=== PATIENT | female | born 1975 | race Caucasian/White ===

== ENCOUNTER 2024-01-22 19:31 | Inpatient (IN) ==
--- NOTE | 2024-01-22 19:42 | ED Triage Note ---
Date of Service January 22, 2024 Provider in Triage Author: Denzel Banuelos History of Present Illness This patient was briefly evaluated while in triage. An abbreviated physical exam was performed. This patient is a 48-year-old Female who presents to the ED for evaluation of abnormal outpatient labs. Had flu last month, and now with vaginal bleeding for about 4 or 5 weeks. Still with persistent fatigue. Out patient blood work with low blood counts, and was sent to ER for evaluation. Physical Exam Limited Triage Exam: VITALS: Vitals are noted on the nurse's note and reviewed by myself. Vital signs stable. GENERAL: Well-developed, well-nourished, white female, who is in no acute distress and resting comfortably. Patient is cooperative with the examination. HEART: Regular rate and rhythm without murmurs gallops or rubs. LUNGS: Clear to auscultation bilaterally without wheezes, rales or rhonchi. No retractions or accessory muscle use. NEURO: Patient was alert and oriented to person place and time. CN II through XII grossly intact. Initial orders for labs and / or imaging were placed and patient was placed in the waiting area until a bed is available. Please see further documentation for the full ED course. MDM / Impression Impression Impression: Symptomatic anemia, Influenza A, Hypokalemia, DUB (dysfunctional uterine bleeding)
[2024-01-22 20:31] LABS: Appearance Urine Clear (Clear); Bacteria Urine Automated Negative (Negative); Bilirubin Urine Negative (Negative); Blood Urine 2+ (Negative); Color Urine Yellow; Glucose Urine UA Negative (Negative); Ketones Urine Negative (Negative); Leukocyte Esterase Urine Negative (Negative); Nitrite Urine Negative (Negative); Protein Urine Negative (Negative); RBC Urine Automated >30 /hpf (0-4); Specific Gravity Urine 1.017 (1.000-1.030); Urobilinogen Urine Negative (Negative); WBC Urine Automated 0 /hpf (0-5); pH Urine 5.5 (4.5-7.5)
[2024-01-22 20:33] LABS: Basophils # (auto) 0.02 K/uL (0.00-0.20); Basophils % (auto) 0.6 %; Eosinophils # (auto) 0.06 K/uL (0.00-0.50); Eosinophils % (auto) 1.8 %; Hematocrit (blood only) 28.6 % (37.0-47.0); Hemoglobin 9.6 g/dl (12.0-16.0); Immature Granulocytes # (auto) 0.01 K/uL (0.01-0.20); Immature Granulocytes % (auto) 0.3 %; Mean Corpuscular Hgb Conc 33.6 g/dL (32.0-36.0); Mean Corpuscular Volume 86.4 fL (80.0-100.0); Mean Platelet Volume 9.8 fL (9.4-12.4); Monocytes % (auto) 12.3 %; Neutrophils # (auto) 1.27 K/uL (1.40-6.50); Platelet Count 262 K/uL (130-400); RDW Coefficient of Variation 14.5 % (11.5-14.5); RDW Standard Deviation 44.7 fL (36.4-46.3); Red Blood Count 3.31 M/uL (4.20-5.40); White Blood Count 3.26 K/ul (4.8-10.8)
[2024-01-22 20:45] LABS: Albumin Globulin Ratio 1.4 (0.9-2); Albumin Level 4.2 gm/dl (3.4-5.0); BUN Creatinine Ratio 18.1 (10-20); Bilirubin,Total 0.3 mg/dl (0.2-1.0); Calcium 9.3 mg/dl (8.6-10.3); Creatinine Clr Calc Pharmacy 79.6 ml/min; Est GFR (African American) 96.6 ml/min; Est GFR (Non-African American) 83.4 ml/min; Globulin 3.1 gm/dl (2.5-4.0); Magnesium 1.8 mg/dl (1.7-2.4); Potassium 2.7 mmol/L (3.5-5.1); Total Protein 7.3 gm/dl (6.0-8.3)
[2024-01-22 20:51] LABS: Pregnancy Test, Serum Negative (Negative)
[2024-01-22 20:52] LABS: Troponin I High Sensitivity 12.9 pg/ml (0-14)
[2024-01-22 20:59] LABS: Partial Thromboplastin Time 28 Seconds (21-31); Prothrombin Time 10.6 Seconds (9.0-12.0)
[2024-01-22 21:01] LABS: Thyroid Stimulating Hormone 3.436 uIu/ml (0.300-4.500)
[2024-01-22] MEDS: POTASSIUM CHLORIDE / WTR 10 MEQ/100 ML PLCT IV SCH (22:20)
[2024-01-22] MEDS: POTASSIUM CHLORIDE CRTAB 20 MEQ TABCR PO STA (22:20)
[2024-01-22 22:41] LABS: Adenovirus PCR Not Detected (NotDetected); Bordetella parapertussis PCR Not Detected (NotDetected); Bordetella pertussis PCR Not Detected (NotDetected); Chlamydia pneumoniae PCR Not Detected (NotDetected); Coronavirus 229E PCR Not Detected (NotDetected); Coronavirus CoV-2 (COVID19)PCR Not Detected (NotDetected); Coronavirus HKU1 PCR Not Detected (NotDetected); Coronavirus NL63 PCR Not Detected (NotDetected); Coronavirus OC43PCR Not Detected (NotDetected); Human Metapneumovirus PCR Not Detected (NotDetected); Influenza A (H3) PCR DETECTED (NotDetected); Influenza B PCR Not Detected (NotDetected); Mycoplasma pneumoniae PCR Not Detected (NotDetected); Parainfluenza Virus 1 PCR Not Detected (NotDetected); Parainfluenza Virus 2 PCR Not Detected (NotDetected); Parainfluenza Virus 3 PCR Not Detected (NotDetected); Parainfluenza Virus 4 PCR Not Detected (NotDetected); Respiratory Syncytial VirusPCR Not Detected (NotDetected); Rhinovirus/Enterovirus PCR Not Detected (NotDetected)
--- NOTE | 2024-01-22 23:00 | History & Physical Report ---
Date of Service January 22, 2024 Assessment & Plan (1) Abnormal uterine bleeding: Plan: Pt is a 48 yo female with PMH of afib s/p ablation on current eliquis therapy and HTN presenting to the ER by recommendation of her PCP d/t low WBC. Influenza - still minimally symptomatic after 1-2 mths of symptoms; main symptom now occasional dry cough - VS stable; afebrile; exam unrevealing; CXR w/o opacities or consolidations - do not suspect any bacterial infection/PNA at this time; will defer antibiotic tx - supportive care; tessalon perles PRN, throat lozenge PRN AUB - per pt, has been perimenopausal with irregular periods for the last 3 yrs; however, usually periods were light - current episode of vaginal bleeding began 12/21; she has to change a pad q1- 2hrs - pelvic US showed endometrial stripe 9 mm; although stripe thickness is not reliable in terms of dysplasia risk in premenopausal women- no other obvious abnormalities to explain her menorrhagia - Hgb upon admission 9.6 (12.4 last year); pt possible symptomatic- occasionally dizzy, fatigue, etc; however, this may be in part d/t influenza as above - trend Hgb to ensure stability - 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 Rey Hx of cardiomyopathy/afib - pt follows with [facility] cardiology - per pt, she had an ablation done last year and has been on eliquis since d/t afib - her most recent stress echo was performed 10/2023- no results available in chart - echo ordered for AM to ensure no acute worsening of heart's functional status leading to pt's current symptoms of dizziness/fatigue - hold eliquis d/t bleeding as above - would recommend further discussion with cardiology concerning whether or not pt needs correction anticoagulation, especially in the setting of acute bleeding Hypokalemia - K 2.7 in ED; repleted with 40 meq PO and 10 meq IV - recheck in AM - hold home HCTZ HTN - pt with hx of labile BP; underwent secondary HTN work up with endocrinology fall 2022 which appears to have not been completed - d/t electrolyte abnormalities, would recommended d/c HCTZ upon discharge - per record review and pt hx, she was previously on losartan and coreg which were switched by endocrinology in order to evaluate further for primary aldosteronism - pt states her BP have been relatively stable since switching to verapamil and HCTZ Dispo: admit to med/tele Diet: heart healthy Code: full VTE ppx: hold eliquis in setting of current bleeding with acute blood loss anemia; encourage ambulation (2) Influenza: (3) Paroxysmal A-fib: (4) Perimenopause: (5) Hypertension: (6) Hypokalemia: History of Present Illness Chief Complaint: general illness, vaginal bleeding- sent by PCP d/t low WBC Primary Care Provider: Dayo Flower DO Pt is a 48 yo female with PMH of afib s/p ablation on current eliquis therapy and HTN presenting to the ER by recommendation of her PCP d/t low WBC. Pt states she has been sick for about a month or two now. Her son had the flu originally and her and her became sick as well- this knocked them out for about 2 weeks. Since then, she has been intermittently sick with cough, fatigue, dizziness, and achiness. She called her PCP for further evaluation and they ordered blood work and she was prescribed amoxicillin. An on-call doctor called her and told her to report to the ER d/t low WBC count that should be worked up further. In addition to this, pt notes she started vaginally bleeding Dec 21. She has been bleeding every day since (except for maybe 3 days). Her flow has been normal to heavy; she has been changing her pad every 1-2 hrs. She relays she has been perimenopausal for ~3 years. Her last period prior to this bleeding was in Jul 2023. Pt does note she did have a heavy 3 week long period a few years ago i n which a pelvic US was performed (this revealed no abnormalities). In the ER, pt was given potassium and magnesium supplementation. Allergies Allergy/AdvReac Type Severity Reaction Status Date / Time dextromethorphan Allergy Intermediate FACIAL Verified 01/22/24 22:16 [From Vicks NyQuil Cold/Flu ITCHY HIVES Liquicap] doxylamine Allergy Intermediate FACIAL Verified 01/22/24 22:16 [From Vicks NyQuil Cold/Flu ITCHY HIVES Liquicap] mineral oil [From Anusol] Allergy Intermediate MADE Verified 01/22/24 22:16 HEMORRHOIDS WORSE NSAIDS (Non-Steroidal Allergy Unknown CONTRAINDICATED Verified 01/22/24 22:16 Anti-Inflamma D/T HEART ISSUES balsam surjit [From Anusol] AdvReac Intermediate MADE Verified 01/22/24 22:16 HEMORRHOIDS WORSE bismuth subgallate AdvReac Intermediate MADE Verified 01/22/24 22:16 [From Anusol] HEMORRHOIDS WORSE pramoxine [From Anusol] AdvReac Intermediate MADE Verified 01/22/24 22:16 HEMORRHOIDS WORSE resorcinol [From Anusol] AdvReac Intermediate MADE Verified 01/22/24 22:16 HEMORRHOIDS WORSE starch [From Anusol] AdvReac Intermediate MADE Verified 01/22/24 22:16 HEMORRHOIDS WORSE zinc oxide [From Anusol] AdvReac Intermediate MADE Verified 01/22/24 22:16 HEMORRHOIDS WORSE Home Medications Medication Instructions Recorded Confirmed Type apixaban 5 mg tablet (Eliquis) 5 mg PO BID 11/24/22 01/22/24 History multivitamin 1 tab PO DAILY 02/20/23 01/22/24 History atorvastatin 20 mg tablet (Lipitor) 20 mg PO DAILY #90 tabs 10/14/23 01/22/24 Rx hydrochlorothiazide 25 mg tablet 25 mg PO DAILY #90 tabs 12/07/23 01/22/24 Rx benzonatate 200 mg capsule 200 mg PO TID PRN cough #30 caps 12/23/23 01/22/24 Rx amoxicillin 500 mg tablet 500 mg PO TID 10 days #30 tabs 01/22/24 01/22/24 Rx ascorbic acid (vitamin C) 500 mg 0 mg PO DAILY PRN COLD AND FLU 01/22/24 01/22/24 History tablet (Vitamin C) SEASON polyethylene glycol 3350 17 gram 17 g PO DIRECTED 01/22/24 01/22/24 History oral powder packet (Miralax) verapamil 40 mg tablet 80 mg PO TID 01/22/24 01/22/24 History Past Med/Surg History Medical History Urinary urgency Family History Mother Hypertension CHF (congestive heart failure) Atrial fibrillation Stroke Sister Thyroid disease Social History Smoking Status: Never smoker Age Quit Using Tobacco: 21; Second Hand Exposure: No; Hx Alcohol Use: Yes Alcohol type: hard liquor Alcohol Intake Frequency: Monthly or Less Hx Substance Use: Yes Last Used Substance: Unknown Last Used Substance Other:: every few months Preferred Language: Faroese Communication Ability: Effective Claim Administrator Required: No Beliefs That Will Affect Care: None marital status: Current Living Situation: Family How many Children do You have: 2 Feels Safe at Home: Yes Childhood Exposure to Second-Hand Smoke: Yes caffeine: Yes Dental Care, Regularly: Yes Physical Activity Frequency: Does not Exercise Seatbelt Use: always Sunscreen Use: Yes Review of Systems Review of Systems: As per HPI Physical Exam Constitutional: NAD, vitals WNL. Eyes: PERRLA. Conjunctivae normal. Respiratory: CTA bilaterally. Non labored breathing. No rhonchi, wheezing, or crackles. Cardiovascular: RRR. No murmurs noted. No LE edema. Skin: No rashes or skin lesions noted. Neurologic: Sensation grossly intact. No FND appreciated. Psychiatric: Speech of normal pace and content. Mood and affect congruent. Results & Data Results & Data Vital Signs (Past 12 Hours) Vital Signs Temp Pulse Pulse Resp BP BP Pulse Ox 01/22/24 22:33 64 01/22/24 21:32 70 16 144/77 H 98 01/22/24 19:39 36.5 C 83 18 145/85 H 98 O2 Del Method 01/22/24 22:33 01/22/24 21:32 Room Air 01/22/24 19:39 Room Air Supervising Physician Co-Signing Physician Notes Attending addendum: I have physically seen this patient, have supervised the medical residents activities, and agree with the H&P unless as otherwise noted. Assessment and Plan: Abnormal uterine bleeding on chronic anticoagulation/blood loss anemia- Significant vaginal bleeding since 12/21/2023 Thickened endometrial stripe to 9 mm on pelvic ultrasound Hemoglobin 9.6 on admission, with base 12.4 No indication for transfusion Need to discuss with cardiology if still has need for anticoagulation Has a pending outpatient appointment with gynecology Cardiomyopathy/atrial fibrillation status post ablation/hypertension- The patient will be admitted to telemetry for serial cardiac enzymes, serial EKG's, cardiac rhythm monitoring and a 2-D echocardiogram with Dopplers. Holding BabyBus due to abnormal uterine bleeding Follows with [facility] Continue verapamil, HCTZ Influenza A H3- Symptoms from 1 to 2 months No direct treatment at this time Supportive care with throat lozenges, Tessalon Perles and Mucinex Resident Activity Tracking Resident Involvement: Resident Care Provided Care Provided: Adult Hospital Medicine
--- NOTE | 2024-01-22 23:10 | Ultrasound Report ---
Exam(s): US PELVIS EXAM: US Pelvis Transabdominal, Complete CLINICAL HISTORY: Reason for exam: heavy vaginal bleeding. TECHNIQUE: Real-time complete transabdominal pelvic ultrasound with image documentation. COMPARISON: No relevant prior studies available. FINDINGS: Uterus/cervix: 9.4 x 5.2 x 5.6 cm. Heterogeneous uterus without a focal fibroid. Normal endometrial stripe thickness at approximately 9 mm. Small amount of fluid within the endometrial canal. Small cervical nabothian cysts. Right ovary: Not well visualized. Probable right ovary 3.1 x 1.3 x 2 cm. Non-shadowing 6 x 5 x 6 mm echogenic focus within the suspected right ovary, possibly a fat-containing lesion. Normal blood flow. Left ovary: 2 x 1.6 x 1.9 cm. No mass. Normal blood flow. Adnexa: No free fluid or adnexal mass. IMPRESSION: Slightly heterogeneous uterus without a focal fibroid. Minimal fluid in the endometrial canal. Small cervical nabothian cyst. Echogenic nonshadowing subcentimeter focus in the probable right ovary, possibly a dermoid or related structure. Otherwise negative examination. Electronically signed by: Castro Gonzalez M.D. 01/22/24 23:09 PM
--- NOTE | 2024-01-22 23:27 | Emergency Department Note ---
History of Present Illness General Chief complaint: Abnormal Labs/Diagnostic Testing Stated complaint: WHITE CELL COUNT, VAG BLEED 1 MONTH, ABNORMAL LABS Time Seen by Provider: 01/22/24 21:30 History of Present Illness This 48-year-old female on Eliquis for history of A-fib who had an ablation last year presents the ER for increasing weakness, heavy vaginal bleeding for the past month, subjective fever and chills and abnormal blood count outpatient by the PCP today. Patient states PCP placed her on amoxicillin for possible infection. She has been sick with cold symptoms for the past few days and also last month also. She has a history of hypertrophic cardiomyopathy and follows with [facility] specialist. She cannot recall the name. Patient denies chest pain, headache, neck stiffness, vomiting, diarrhea. She states she is easily winded nowadays. She has not missed any of her DOAC medications. No leg pain or swelling. Home Medications Medication Instructions Recorded Confirmed Type apixaban 5 mg tablet (Eliquis) 5 mg PO BID 11/24/22 01/22/24 History multivitamin 1 tab PO DAILY 02/20/23 01/22/24 History atorvastatin 20 mg tablet (Lipitor) 20 mg PO DAILY #90 tabs 10/14/23 01/22/24 Rx hydrochlorothiazide 25 mg tablet 25 mg PO DAILY #90 tabs 12/07/23 01/22/24 Rx benzonatate 200 mg capsule 200 mg PO TID PRN cough #30 caps 12/23/23 01/22/24 Rx amoxicillin 500 mg tablet 500 mg PO TID 10 days #30 tabs 01/22/24 01/22/24 Rx ascorbic acid (vitamin C) 500 mg 0 mg PO DAILY PRN COLD AND FLU 01/22/24 01/22/24 History tablet (Vitamin C) SEASON polyethylene glycol 3350 17 gram 17 g PO DIRECTED 01/22/24 01/22/24 History oral powder packet (Miralax) verapamil 40 mg tablet 80 mg PO TID 01/22/24 01/22/24 History Allergies Allergy/AdvReac Type Severity Reaction Status Date / Time dextromethorphan Allergy Intermediate FACIAL Verified 01/22/24 22:16 [From [facility] NyQuil Cold/Flu ITCHY HIVES Liquicap] doxylamine Allergy Intermediate FACIAL Verified 01/22/24 22:16 [From [facility] NyQuil Cold/Flu ITCHY HIVES Liquicap] mineral oil [From Anusol] Allergy Intermediate MADE Verified 01/22/24 22:16 HEMORRHOIDS WORSE NSAIDS (Non-Steroidal Allergy Unknown CONTRAINDICATED Verified 01/22/24 22:16 Anti-Inflamma D/T HEART ISSUES balsam surjit [From Anusol] AdvReac Intermediate MADE Verified 01/22/24 22:16 HEMORRHOIDS WORSE bismuth subgallate AdvReac Intermediate MADE Verified 01/22/24 22:16 [From Anusol] HEMORRHOIDS WORSE pramoxine [From Anusol] AdvReac Intermediate MADE Verified 01/22/24 22:16 HEMORRHOIDS WORSE resorcinol [From Anusol] AdvReac Intermediate MADE Verified 01/22/24 22:16 HEMORRHOIDS WORSE starch [From Anusol] AdvReac Intermediate MADE Verified 01/22/24 22:16 HEMORRHOIDS WORSE zinc oxide [From Anusol] AdvReac Intermediate MADE Verified 01/22/24 22:16 HEMORRHOIDS WORSE Past Med/Surg History Medical History Urinary urgency Family History Mother Hypertension CHF (congestive heart failure) Atrial fibrillation Stroke Sister Thyroid disease Social History Smoking Status: Never smoker Age Quit Using Tobacco: 21; Second Hand Exposure: No; Hx Alcohol Use: Yes Alcohol Intake Frequency: Monthly or Less Hx Substance Use: No Preferred Language: Georgian marital status: Current Living Situation: Spouse and Family How many Children do You have: 2 Feels Safe at Home: Yes Childhood Exposure to Second-Hand Smoke: Yes caffeine: Yes Dental Care, Regularly: Yes Physical Activity Frequency: Does not Exercise Seatbelt Use: always Sunscreen Use: Yes Review of Systems A total of 10 systems reviewed and were otherwise negative Physical Exam Vital Signs Vital Signs - 24 hr 01/22/24 19:39 01/22/24 21:32 01/22/24 22:33 Temperature 36.5 C Temperature Source Temporal Artery Scan Pulse Rate 83 64 Pulse Rate [Right Finger] 70 Respiratory Rate 18 16 Respiratory Effort / Characteristics Non-Labored Spontaneous Non-Labored Spontaneous Respiratory Depth Normal Normal Respiratory Pattern Regular Regular Blood Pressure 145/85 H Blood Pressure [Right Arm] 144/77 H Blood Pressure Mean 105 Blood Pressure Mean [Right Arm] 99 Blood Pressure Position [Right Arm] Sitting Pulse Oximetry 98 98 Oxygen Delivery Method Room Air Room Air Sepsis Recent Fever Within 48 Hours No Sepsis New/Unexplained Change in Mental Status No Sepsis Action Taken by Nursing No Action Required VITALS: Vitals are noted on the nurse's note and reviewed by myself. Vital signs stable. GENERAL: Pleasant patient, in no acute distress, nondiaphoretic, well-developed well-nourished. SKIN: Capillary reflex less than 2 seconds. HEENT: Normocephalic. PERRLA. EOMI. Nares patent. Mucous membranes moist. Neck is supple without nuchal rigidity. HEART: Regular rate and rhythm LUNGS: Clear to auscultation bilaterally without wheezes, rales or rhonchi. No retractions or accessory muscle use. ABDOMEN: Positive bowel sounds x 4. Normal tympanic percussion. Soft, nontender, without masses or organomegaly. Casas sign negative. No guarding or rebound tenderness. no CVA tenderness MUSCULOSKELETAL: No gross musculoskeletal defects. NEURO: Patient was alert and oriented to person place and time. No focal neurological deficits. Course Administered Medications Potassium Chloride (K Nic / Wtr) 10 meq in 100 mls @ 100 mls/hr IV Q1H [facility] Stop: 01/22/24 23:59 Last Admin: 01/22/24 23:24 Dose: 100 mls/hr Documented By: Infusion: 01/22/24 23:20 Dose: Infused Documented By: Admin: 01/22/24 22:20 Dose: 100 mls/hr Documented By: ROBERTO Discontinued Medications Potassium Chloride (Potassium Chloride Crtab 20 Meq Tabcr) 40 meq PO NOW STA Stop: 01/22/24 21:51 Last Admin: 01/22/24 22:20 Dose: 40 meq Documented By: ROBERTO Medical Decision Making Medical Records Attestation: I reviewed the patient's medical records. Home Medications Current Medication List: was personally reviewed by me Laboratory Data Attestation: I reviewed the patient's lab results. 01/22/24 20:07 01/22/24 20:07 Lab Results 01/22/24 01/22/24 01/22/24 Range/Units 20:05 20:07 20:14 WBC 3.26 L (4.8-10.8) K/ul RBC 3.31 L (4.20-5.40) M/uL Hgb 9.6 L (12.0-16.0) g/dl Hct 28.6 L (37.0-47.0) % MCV 86.4 (80.0-100.0) fL MCH 29.0 (25.0-34.0) pg MCHC 33.6 (32.0-36.0) g/dL RDW Std Deviation 44.7 (36.4-46.3) fL RDW Coeff of Polo 14.5 (11.5-14.5) % Plt Count 262 (130-400) K/uL MPV 9.8 (9.4-12.4) fL Immature Gran % (Auto) 0.3 % Neut % (Auto) 39.0 % Lymph % (Auto) 46.0 % Cass % (Auto) 12.3 % Eos % (Auto) 1.8 % Baso % (Auto) 0.6 % Neut # (Auto) 1.27 L (1.40-6.50) K/uL Lymph # (Auto) 1.50 (1.20-3.40) K/uL Cass # (Auto) 0.40 (0.11-0.59) K/uL Eos # (Auto) 0.06 (0.00-0.50) K/uL Baso # (Auto) 0.02 (0.00-0.20) K/uL Immature Gran # (Auto) 0.01 (0.01-0.20) K/uL PT 10.6 (9.0-12.0) Seconds INR 1.0 (0.9-1.1) APTT 28 (21-31) Seconds PTT Ratio 1.0 Sodium 137 (136-145) mmol/L Potassium 2.7 L (3.5-5.1) mmol/L Chloride 98 (98-107) mmol/L Carbon Dioxide 30 (21-32) mmol/L Anion Gap 9 (3-11) BUN 15 (6-23) mg/dl Creatinine 0.83 (0.6-1.2) mg/dl Est Cr Clr Drug Dosing 79.6 ml/min Est GFR ( Amer) 96.6 ml/min Est GFR (Non-Af Amer) 83.4 ml/min BUN/Creatinine Ratio 18.1 (10-20) Glucose 102 H (70-99(Fasting)) mg/dl Calcium 9.3 (8.6-10.3) mg/dl Magnesium 1.8 (1.7-2.4) mg/dl Total Bilirubin 0.3 (0.2-1.0) mg/dl AST 34 (13-39) U/L ALT 36 (7-52) U/L Alkaline Phosphatase 103 (34-104) U/L Troponin I High Sens 12.9 (0-14) pg/ml Total Protein 7.3 (6.0-8.3) gm/dl Albumin 4.2 (3.4-5.0) gm/dl Globulin 3.1 (2.5-4.0) gm/dl Albumin/Globulin Ratio 1.4 (0.9-2) TSH 3.436 (0.300-4.500) uIu/ml HCG, Qual Negative (Negative) Urine Color Yellow Urine Appearance Clear (Clear) Urine pH 5.5 (4.5-7.5) Ur Specific Navarro 1.017 (1.000-1.030) Urine Protein Negative (Negative) Urine Glucose (UA) Negative (Negative) Urine Ketones Negative (Negative) Urine Blood 2+ H (Negative) Urine Nitrite Negative (Negative) Urine Bilirubin Negative (Negative) Urine Urobilinogen Negative (Negative) Ur Leukocyte Esterase Negative (Negative) Urine WBC (Auto) 0 (0-5) /hpf Urine RBC (Auto) >30 H (0-4) /hpf U Hyaline Cast (Auto) 1-5 (0-5) /lpf U Epithel Cells (Auto) 5-10 H (0-5) /lpf Urine Bacteria (Auto) Negative (Negative) Adenovirus (PCR) (NotDetected) B. pertussis DNA (PCR) (NotDetected) B.parapertussis DNA PCR (NotDetected) C. pneumoniae DNA (PCR) (NotDetected) Coronavirus OC43 (PCR) (NotDetected) Coronavirus HKU1 (PCR) (NotDetected) Coronavirus 229E (PCR) (NotDetected) SARS-CoV-2 (PCR) (NotDetected) Coronavirus NL63 (PCR) (NotDetected) Monoscreen Negative (Negative) Human Metapneumovir PCR (NotDetected) Influenza A (H3) PCR (NotDetected) Influenza Type B (PCR) (NotDetected) M. pneumoniae (PCR) (NotDetected) Parainfluenza 1 (PCR) (NotDetected) Parainfluenza 2 (PCR) (NotDetected) Parainfluenza 3 (PCR) (NotDetected) Parainfluenza 4 (PCR) (NotDetected) RSV (PCR) (NotDetected) Entero/Rhino (PCR) (NotDetected) Group A Strep (PCR) (NotDetected) Blood Type B Positive Antibody Screen NEGATIVE 01/22/24 01/22/24 Range/Units 21:30 22:45 WBC (4.8-10.8) K/ul RBC (4.20-5.40) M/uL Hgb (12.0-16.0) g/dl Hct (37.0-47.0) % MCV (80.0-100.0) fL MCH (25.0-34.0) pg MCHC (32.0-36.0) g/dL RDW Std Deviation (36.4-46.3) fL RDW Coeff of Polo (11.5-14.5) % Plt Count (130-400) K/uL MPV (9.4-12.4) fL Immature Gran % (Auto) % Neut % (Auto) % Lymph % (Auto) % Cass % (Auto) % Eos % (Auto) % Baso % (Auto) % Neut # (Auto) (1.40-6.50) K/uL Lymph # (Auto) (1.20-3.40) K/uL Cass # (Auto) (0.11-0.59) K/uL Eos # (Auto) (0.00-0.50) K/uL Baso # (Auto) (0.00-0.20) K/uL Immature Gran # (Auto) (0.01-0.20) K/uL PT (9.0-12.0) Seconds INR (0.9-1.1) APTT (21-31) Seconds PTT Ratio Sodium (136-145) mmol/L Potassium (3.5-5.1) mmol/L Chloride (98-107) mmol/L Carbon Dioxide (21-32) mmol/L Anion Gap (3-11) BUN (6-23) mg/dl Creatinine (0.6-1.2) mg/dl Est Cr Clr Drug Dosing ml/min Est GFR ( Amer) ml/min Est GFR (Non-Af Amer) ml/min BUN/Creatinine Ratio (10-20) Glucose (70-99(Fasting)) mg/dl Calcium (8.6-10.3) mg/dl Magnesium (1.7-2.4) mg/dl Total Bilirubin (0.2-1.0) mg/dl AST (13-39) U/L ALT (7-52) U/L Alkaline Phosphatase (34-104) U/L Troponin I High Sens (0-14) pg/ml Total Protein (6.0-8.3) gm/dl Albumin (3.4-5.0) gm/dl Globulin (2.5-4.0) gm/dl Albumin/Globulin Ratio (0.9-2) TSH (0.300-4.500) uIu/ml HCG, Qual (Negative) Urine Color Urine Appearance (Clear) Urine pH (4.5-7.5) Ur Specific Navarro (1.000-1.030) Urine Protein (Negative) Urine Glucose (UA) (Negative) Urine Ketones (Negative) Urine Blood (Negative) Urine Nitrite (Negative) Urine Bilirubin (Negative) Urine Urobilinogen (Negative) Ur Leukocyte Esterase (Negative) Urine WBC (Auto) (0-5) /hpf Urine RBC (Auto) (0-4) /hpf U Hyaline Cast (Auto) (0-5) /lpf U Epithel Cells (Auto) (0-5) /lpf Urine Bacteria (Auto) (Negative) Adenovirus (PCR) Not Detected (NotDetected) B. pertussis DNA (PCR) Not Detected (NotDetected) B.parapertussis DNA PCR Not Detected (NotDetected) C. pneumoniae DNA (PCR) Not Detected (NotDetected) Coronavirus OC43 (PCR) Not Detected (NotDetected) Coronavirus HKU1 (PCR) Not Detected (NotDetected) Coronavirus 229E (PCR) Not Detected (NotDetected) SARS-CoV-2 (PCR) Not Detected (NotDetected) Coronavirus NL63 (PCR) Not Detected (NotDetected) Monoscreen (Negative) Human Metapneumovir PCR Not Detected (NotDetected) Influenza A (H3) PCR DETECTED A (NotDetected) Influenza Type B (PCR) Not Detected (NotDetected) M. pneumoniae (PCR) Not Detected (NotDetected) Parainfluenza 1 (PCR) Not Detected (NotDetected) Parainfluenza 2 (PCR) Not Detected (NotDetected) Parainfluenza 3 (PCR) Not Detected (NotDetected) Parainfluenza 4 (PCR) Not Detected (NotDetected) RSV (PCR) Not Detected (NotDetected) Entero/Rhino (PCR) Not Detected (NotDetected) Group A Strep (PCR) NOT DETECTED (NotDetected) Blood Type Antibody Screen Imaging Data Attestation: I personally reviewed and interpreted this imaging study as follows: Radiologist's Impression: Pelvis Ultrasound 01/22/24 19:42 Exam(s): US PELVIS EXAM: US Pelvis Transabdominal, Complete CLINICAL HISTORY: Reason for exam: heavy vaginal bleeding. TECHNIQUE: Real-time complete transabdominal pelvic ultrasound with image documentation. COMPARISON: No relevant prior studies available. FINDINGS: Uterus/cervix: 9.4 x 5.2 x 5.6 cm. Heterogeneous uterus without a focal fibroid. Normal endometrial stripe thickness at approximately 9 mm. Small amount of fluid within the endometrial canal. Small cervical nabothian cysts. Right ovary: Not well visualized. Probable right ovary 3.1 x 1.3 x 2 cm. Non-shadowing 6 x 5 x 6 mm echogenic focus within the suspected right ovary, possibly a fat-containing lesion. Normal blood flow. Left ovary: 2 x 1.6 x 1.9 cm. No mass. Normal blood flow. Adnexa: No free fluid or adnexal mass. IMPRESSION: Slightly heterogeneous uterus without a focal fibroid. Minimal fluid in the endometrial canal. Small cervical nabothian cyst. Echogenic nonshadowing subcentimeter focus in the probable right ovary, possibly a dermoid or related structure. Otherwise negative examination. Electronically signed by: Castro Gonzalez M.D. 01/22/24 23:09 PM MDM Narrative 30 prior records/ancillary studies reviewed and summarized above. Nursing notes reviewed. Additional history obtained from family. The patient's history was concerning for heavy vaginal bleeding on a DOAC, weakness, cold symptoms. Differential diagnosis: Etiologies such as metabolic, infection, hypo/hyperglycemia, electrolyte abnormalities, cardiac sources, intracerebral event, toxicologic, neurologic, as well as others were entertained. Physical examination: As above. ER treatment provided: IV Lock An order was placed for continuous cardiac monitoring. The monitor shows a rate of 60-100 with a sinus rhythm per my interpretation. IV fluids, potassium, magnesium were ordered On reassessment the patient felt better. Diagnostics interpretation by me: ECG: Ordered for weakness EKG: Normal sinus, right bundle, left anterior fascicular block, rate of 71. Impression normal sinus rhythm with right bundle branch block unchanged independent abdomen myself The labs Independently Interpreted by myself revealed new anemia, positive flu A, low potassium. Imaging studies: Chest x-ray with no acute consolidation, pneumothorax or free air per my independent interpretation Ultrasound as above Consultation: A consultation was placed with the hospitalist. The case was discussed and diagnostics were reviewed. The patient was evaluated in the ER for further treatment. Exam and history seem consistent with symptomatic anemia who is also flu a positive with low potassium. Patient is also on a DOAC. She has had increasing heavy bleeding for the past few weeks steadily getting worse. She is also been quite short of breath and fatigued. She was medicated as above. Patient is agreeable treatment plan of medicine. Medicine was consulted and will evaluate the patient for admission. The patient's family care doctor was messaged on secure text to inform them of the test results as they sent the patient in. By the evaluation outlined above emergent etiologies such as cardiac sources, intracerebral event, toxologic, neurologic, abnormalities blood glucose, metabolic, as well as others were deemed relatively unlikely. The pt informed about the findings as listed above. All questions were answered and pleased with the treatment. The chart was completed utilizing [email or web address] voice recognition software. Grammatical errors, random word insertions, pronoun errors, and incomplete sentences are an occassional consequence of this system due to software limitations, ambient noise, and hardware issues. Any formal questions or concerns about the content, text, or information contained within the body of this dictation should be directly addressed to the physician assistant director of plant operations for clarification. Impression & Plan Symptomatic anemia, Influenza A, Hypokalemia, DUB (dysfunctional uterine bleeding) Discharge Plan Visit Data Chief Complaint: Abnormal Labs/Diagnostic Testing Stated Complaint: WHITE CELL COUNT, VAG BLEED 1 MONTH, ABNORMAL LABS ED Provider: Jaskaran Hardin ED Midlevel Provider: Mary Jo Stallings Discharge Problem: Symptomatic anemia, Influenza A, Hypokalemia, DUB (dysfunctional uterine bleeding) Patient Disposition: Admitted As Inpatient Condition: Good Forms Stand Alone Forms: [facility] Prescriptions Prescriptions: No Action atorvastatin [Lipitor] 20 mg tablet 20 mg PO DAILY Qty: 90 2RF hydrochlorothiazide 25 mg tablet 25 mg PO DAILY Qty: 90 2RF amoxicillin 500 mg tablet 500 mg PO TID 10 Days Qty: 30 0RF Rx Instructions: STARTED 01/22/24 FOR 10 DAYS Eliquis 5 mg tablet 5 mg PO BID multivitamin Tablet 1 tab PO DAILY benzonatate 200 mg capsule 200 mg PO TID PRN (Reason: cough) Qty: 30 0RF polyethylene glycol 3350 [Miralax] 17 gram Powder In Packet 17 g PO DIRECTED Rx Instructions: TAKES DAILY OR EVERY OTHER DAY ascorbic acid (vitamin C) [Vitamin C] 500 mg Tablet 0 mg PO DAILY PRN (Reason: COLD AND FLU SEASON) Rx Instructions: PT UNSURE OF STRENGTH verapamil 40 mg tablet 80 mg PO TID Referrals Referrals: Dayo Flower DO [Primary Care Provider] -
[2024-01-22] MEDS: MAGNESIUM SULFATE / D5W 1 GM/100 ML BAG IV STA (23:36)
[2024-01-23] MEDS ORDERED: COUGH DROP (SUGAR FREE) LOZ 24 LOZ/1 BOX BUCCAL PRN (01:26)
[2024-01-23] MEDS ORDERED: BENZONATATE 100 MG CAPSULE PO PRN (01:26)
[2024-01-23] MEDS ORDERED: ONDANSETRON INJ 2 MG/ML 2 ML VIAL IV PRN (01:26)
[2024-01-23] MEDS ORDERED: POLYETHYLENE (MIRALAX) 17 GM PACK PO PRN (01:26)
[2024-01-23] MEDS ORDERED: ACETAMINOPHEN 325 MG TAB PO PRN (01:26)
[2024-01-23 03:06] LABS: Basophils # (auto) 0.01 K/uL (0.00-0.20); Basophils % (auto) 0.4 %; Eosinophils # (auto) 0.03 K/uL (0.00-0.50); Eosinophils % (auto) 1.1 %; Hemoglobin 8.3 g/dl (12.0-16.0); Immature Granulocytes # (auto) 0.01 K/uL (0.01-0.20); Immature Granulocytes % (auto) 0.4 %; Lymphocytes % (auto) 49.1 %; Mean Corpuscular Hemoglobin 29.3 pg (25.0-34.0); Mean Corpuscular Hgb Conc 34.6 g/dL (32.0-36.0); Mean Corpuscular Volume 84.8 fL (80.0-100.0); Mean Platelet Volume 9.8 fL (9.4-12.4); Monocytes # (auto) 0.26 K/uL (0.11-0.59); Monocytes % (auto) 9.8 %; Neutrophils # (auto) 1.04 K/uL (1.40-6.50); Neutrophils % (auto) 39.2 %; Platelet Count 207 K/uL (130-400); RDW Coefficient of Variation 14.5 % (11.5-14.5); RDW Standard Deviation 44.6 fL (36.4-46.3); Red Blood Count 2.83 M/uL (4.20-5.40); White Blood Count 2.65 K/ul (4.8-10.8)
[2024-01-23 03:18] LABS: BUN Creatinine Ratio 22.1 (10-20); Calcium 8.5 mg/dl (8.6-10.3); Creatinine Clr Calc Pharmacy 97.2 ml/min; Est GFR (African American) 119.9 ml/min; Est GFR (Non-African American) 103.4 ml/min; Magnesium 2.1 mg/dl (1.7-2.4)
--- NOTE | 2024-01-23 07:23 | XRay Report ---
XR chest 1V portable HISTORY: cough/fatigue COMPARISON: None. FINDINGS: The lungs are clear. Cardiac silhouette is normal in size. No pleural effusions. No pneumot horax. IMPRESSION: No acute process. ACT 112: Negative or not required by law. Electronically signed by: Jude Vidal M.D. 01/23/2024 7:22 AM
--- NOTE | 2024-01-23 07:48 | Hospitalist Progress Note ---
Date of Service January 23, 2024 Assessment & Plan (1) Abnormal uterine bleeding: Plan: Pt is a 48 yo female with PMH of afib s/p ablation on current eliquis therapy and HTN presenting to the ER by recommendation of her PCP d/t low WBC. Leukopenia -Patient with WBC 2.43 and neutrophil 0.81 on outpatient lab 01/21. -Influenza a month ago with persistence for 2 weeks then worsening recently and testing positive for Influenza A on biofire. -Hgb low but in the face of AUB likely cannot say if this is related to the leukopenia. Platelets remain in a normal range. -Medications with rare side effect of leukopenia include amoxicillin and HCTZ however very unlikely these are cause. -More likely viral marrow suppression due to influenza A or another virus not detected by biofire. -Will continue to trend, if continues to trend well then likely benign and patient can follow up outpatient. Influenza: -Still somewhat symptomatic with main symptom dry cough. -Patient has remained hemodynamically stable, physical exam reassuring, CXR normal. -May have had re-activation of influenza vs post-viral bacterial infection of pharynx or sinuses. -Continue supportive care for now, tessalon perles PRN, throat lozenge PRN. AUB/Anemia -per pt, has been perimenopausal with irregular periods for the last 3 yrs; however, usually periods were light (change pads q3-4 hours) -current episode of vaginal bleeding began 12/21 with slight break from Sun to Thursday; she has to change a heavy pads q1-2hrs -pelvic US showed endometrial stripe 9 mm; although stripe thickness is not reliable in terms of dysplasia risk in premenopausal women- no other obvious abnormalities to explain her menorrhagia -Hgb upon admission 9.6 (12.4 last year); pt possible symptomatic- occasionally dizzy, fatigue, etc; however, this may be in part d/t influenza as above -Iron low normal at 35, transferrin low normal 206, transferrin sat low 12%, TIBC normal, B12 normal. -Patient has done well to keep iron stores in normal range given amount of blood loss over past month. -Will trend hemoglobin to ensure stability. -Started norethindrone 5mg QID in the hopes of stopping the bleeding, told patient may take one to three days. -Will continue to monitor until bleeding stops. -Pt does have an outpatient biometrician appt for this upcoming January [address] Rey Hx of cardiomyopathy/afib -Pt follows with [facility] cardiology -Per pt, she had an ablation done last year and has been on eliquis since d/t afib -her most recent stress echo was performed 10/2023- no results available in chart - echo ordered this AM to ensure no acute worsening of heart's functional status leading to pt's current symptoms of dizziness/fatigue -hold eliquis d/t bleeding as above Hypokalemia -K 2.7 in ED; repleted with 40 meq PO and 10 meq IV -AM BMP -hold home HCTZ HTN -Pt with hx of labile BP; underwent secondary HTN work up with endocrinology fall 2022 which appears to have not been completed -d/t electrolyte abnormalities, would recommended d/c HCTZ upon discharge -per record review and pt hx, she was previously on losartan and coreg which were switched by endocrinology in order to evaluate further for primary aldosteronism -pt states her BP have been relatively stable since switching to verapamil and HCTZ Dispo: admit to med/tele Diet: heart healthy Code: full VTE ppx: hold eliquis in setting of current bleeding with acute blood loss anemia; encourage ambulation (2) Influenza: (3) Paroxysmal A-fib: (4) Perimenopause: (5) Hypertension: (6) Hypokalemia: Admission and Anticipated Discharge Date Admission Date: January 22, 2024 Supervising Physician Co-Signing Physician Notes I personally examined the patient and verified all cannon points of history and exam, discussed case, and agree with decision making with Dr Pearce Feeling better breathing. Looks weak. Notes that she was feeling better from the flu, slowly getting better, and then her grandson was sick with something seeming virus from daycare, few days later she had low-grade temps and worse cough. Her temp on Thursday was about 99, nothing elevated since. No chest pain or shortness of breathmore of a cough feeling like it is coming from her throat, no significant face pain/pressure/sinus congestion. Vaginal bleeding persists. Vitals noted, in general she is awake and alert pleasant no distress. HEENT normocephalic atraumatic mucous membranes moist. Breathing unlabored no accessory muscle use good effort. Skin shows no rashes no pallor or icterus. Neuro without focal deficits. Subacute blood loss anemia/ vaginal bleedinggiven reassuring pelvic ultrasound as far as endometrial findings, this seems most likely to be perimenopausal irregular dysfunctional uterine bleeding compounded by Eliquis for A-fib. Given that the bleeding persistswill treat with progesterone. If that does not affect improvement in bleeding, inpatient gynecology consult, if it does, she is set up to see gynecology as an outpatient in a little over a week. Fortunately her iron stores are on the low end of normal, so suspect that she will be able to hematopoiese her way out of anemia as long as the bleeding stops. Upper respiratory symptomsher history is quite compelling for having had the flu, followed by another, discretely different, viral illness this past week. Nothing fitting with bacterial overgrowth or a bacterial infectionno clear role for antibiotics. She agrees. Ongoing vigilance and supportive care. Leukopenianothing appears to be overall ominouswhile she "does have 2 cell lines down"the anemia seems to be much more directly related to her vaginal bleeding, and her platelets being normal is reassuring. Also she does not really show any other concerning signs or symptoms. I suspect it is a viral mediated marrow suppression leukopenia. We discussed this. If so, would anticipate this to improve over time, if it does not normalize over the next 2 weeks or so, or if new symptoms develop, then would definitely want to workup further. Atrial fibrillationEliquis currently on hold due to vaginal bleeding. Discussed risk/benefit of this, and the small possible increased risk of venous thromboembolic events on progesterone, which is likely independent of her atrial fibrillation overall. At the same time, discussed that basically as soon as her vaginal bleeding has stopped we will be resuming her Eliquis otherwise as above Subjective Per patient she is feeling better today than yesterday. She also adds for her cold symptoms that she lives with her 4 year old grandson and that he had gone to a new daycare this past month and gotten sick prior her to getting the symptoms she came in with. As original HPI stated she has had irregular bleeding pattern with latest bleeding from late November until Thursday and then picked up again Thursday. When she has this bleeding it usually requires changing heavy pads or nightly pads every 1-2 hours. When she had regular periods, prior to her julio-menopausal irregularity, she had bleeding that would only necessitate every 3-4 hours for changing pads and period would last for 4 or 5 days. She does not have prior history of anemia necessitating iron treatment however had some anemia in . She had tried iron supplement before however and had const ipation from it. She is still having the heavy bleeding even into this admission. Review of Systems Review of Systems: As per HPI Physical Exam Constitutional: WD/WN, vitals as above Eyes: PERRL, conjunctivae normal, anicteric sclerae Respiratory: normal respiratory effort, lungs clear to auscultation Cardiovascular: RRR, no murmur, no edema Gastrointestinal (Abdomen): normal bowel sounds, soft, nontender, no hepatosplenomegaly Psychiatric: A+Ox3, euthymic affect Results & Data Results & Data Vital Signs (Past 12 Hours) Vital Signs Pulse Pulse Pulse Resp BP Pulse Ox O2 Del Method 01/23/24 07:01 55 L 01/23/24 06:16 65 20 121/87 97 Room Air 01/23/24 04:04 60 15 102/66 97 Room Air 01/23/24 01:48 64 19 120/75 97 Room Air 01/23/24 01:00 64 15 113/63 97 Room Air 01/22/24 23:00 87 17 138/89 99 Room Air 01/22/24 22:33 64 01/22/24 21:32 70 16 144/77 H 98 Room Air Resident Activity Tracking Resident Involvement: Resident Care Provided Care Provided: Adult Hospital Medicine
[2024-01-23] MEDS: VERAPAMIL HCL 40 MG TAB PO SCH (07:51)
[2024-01-23] MEDS: ATORVASTATIN 20 MG TAB PO SCH (07:51)
[2024-01-23 10:23] LABS: Ferritin 68.5 ng/ml (8-388)
[2024-01-23] MEDS: POTASSIUM CHLORIDE CRTAB 20 MEQ TABCR PO STA (12:24)
--- NOTE | 2024-01-23 14:40 | Billing Data ---
Date of Service January 23, 2024 Coding Level of Care Code 81357 SUB INP/OBS CARE MIN
--- NOTE | 2024-01-23 16:25 | XCELERA ---
[id number] \\[email or web address]\[id number]\[id number]
[2024-01-23] MEDS: NORETHINDRONE 5 MG TAB PO SCH (17:20)
--- NOTE | 2024-01-23 19:32 | Billing Data ---
Date of Service January 23, 2024 Coding Level of Care Code 30964 INT INP/OBS CARE
[2024-01-24 06:43] LABS: Calcium 8.3 mg/dl (8.6-10.3); Hematocrit (blood only) 25.6 % (37.0-47.0); Hemoglobin 8.6 g/dl (12.0-16.0); Mean Corpuscular Hemoglobin 29.1 pg (25.0-34.0); Mean Corpuscular Hgb Conc 33.6 g/dL (32.0-36.0); Mean Corpuscular Volume 86.5 fL (80.0-100.0); Mean Platelet Volume 10.1 fL (9.4-12.4); Platelet Count 210 K/uL (130-400); Potassium 3.3 mmol/L (3.5-5.1); RDW Coefficient of Variation 14.8 % (11.5-14.5); RDW Standard Deviation 46.2 fL (36.4-46.3); Red Blood Count 2.96 M/uL (4.20-5.40); White Blood Count 3.38 K/ul (4.8-10.8)
[2024-01-24 06:49] LABS: BUN Creatinine Ratio 15.2 (10-20); Creatinine Clr Calc Pharmacy 100.2 ml/min; Est GFR (African American) 121.1 ml/min; Est GFR (Non-African American) 104.5 ml/min
--- NOTE | 2024-01-24 07:16 | Hospitalist Progress Note ---
Date of Service January 24, 2024 Assessment & Plan (1) Abnormal uterine bleeding: Plan: Pt is a 48 yo female with PMH of afib s/p ablation on current eliquis therapy and HTN presenting to the ER by recommendation of her PCP d/t low WBC. AUB/Anemia -per pt, has been perimenopausal with irregular periods for the last 3 yrs; however, usually periods were light (change pads q3-4 hours) -current episode of vaginal bleeding began 12/21 with slight break from Thu to Thursday; she has to change a heavy pads q1-2hrs -pelvic US without evidence for overt cause of bleeding. -Hgb upon admission 9.6 (12.4 last year); pt possible symptomatic- occasionally dizzy, fatigue, etc; however, this may be in part d/t influenza. -Iron low normal at 35, transferrin low normal 206, transferrin sat low 12%, TIBC normal, B12 normal. -Patient has done well to keep iron stores in normal range given amount of blood loss over past month. -Will trend hemoglobin to ensure stability. -Started norethindrone 5mg QID in the hopes of stopping the bleeding, told patient may take one to three days. -Will continue to monitor until bleeding stops. -Pt does have an outpatient machine room operator appt for this upcoming January [address] Rey Leukopenia Resolving -Patient with WBC 2.43 and neutrophil 0.81 on outpatient lab 01/21. -Influenza a month ago with persistence for 2 weeks then worsening recently and testing positive for Influenza A on biofire. -Hgb low but in the face of AUB likely cannot say if this is related to the leukopenia. Platelets remain in a normal range. -Medications with rare side effect of leukopenia include amoxicillin and HCTZ however very unlikely these are cause. -More likely viral marrow suppression due to influenza A or another virus not detected by biofire. -Trending upward, neutrophils in normal range now. -Will continue to trend, if continues to trend well then likely benign and patient can follow up outpatient with repeat CBC in 2 weeks. Influenza: -Still somewhat symptomatic with main symptom dry cough. -Patient has remained hemodynamically stable, physical exam reassuring, CXR normal. -May have had re-activation of influenza vs post-viral bacterial infection of pharynx or sinuses. -Continue supportive care for now, Tessalon Perles PRN, throat lozenge PRN. Hx of cardiomyopathy/afib -Pt follows with [facility] cardiology -Per pt, she had an ablation done last year and has been on eliquis since d/t afib -her most recent stress echo was performed 10/2023- no results available in chart -echo this admission without abnormalities other than known HCM. -hold eliquis d/t bleeding as above Hypokalemia -K 2.7 in ED; repleted with 40 meq PO and 10 meq IV -AM BMP -hold home HCTZ HTN -Pt with hx of labile BP; underwent secondary HTN work up with endocrinology fall 2022 which appears to have not been completed -d/t electrolyte abnormalities, would recommended d/c HCTZ upon discharge -per record review and pt hx, she was previously on losartan and coreg which were switched by endocrinology in order to evaluate further for primary aldosteronism -pt states her BP have been relatively stable since switching to verapamil and HCTZ Diet: heart healthy Code: full VTE ppx: hold Eliquis in setting of current bleeding with acute blood loss anemia; encourage ambulation Dispo: Med/tele, discharge when bleeding stops on norethindrone. (2) Influenza: (3) Paroxysmal A-fib: (4) Perimenopause: (5) Hypertension: (6) Hypokalemia: Admission and Anticipated Discharge Date Admission Date: January 22, 2024 Supervising Physician Co-Signing Physician Notes I personally examined the patient and verified all cannon points of history and exam, discussed case, and agree with decision making with Dr Pearce bleeding slowing a little. walked halls no excessive dyspnea felt ok. no other new complaints. vitals noted nad heent nc at mmm breathing unlabored no accessory muscles good effort skin no rashes no pallor or icterus. Subacute blood loss anemia/ vaginal bleedinggiven reassuring pelvic ultrasound as far as endometrial findings, this seems most likely to be perimenopausal irregular dysfunctional uterine bleeding compounded by Eliquis for A-fib. Given that the bleeding persistedtreating with progesterone. improving some - continue current care. if fails to improve/if rebounds off progesterone then machine room operator consult. given complexity of bleeding enough to create anemia as well as needing to get back on eliquis as quickly as safely can be done, with addtional ramification of ?if bleeding doesn't improve quickly may need machine room operator sooner than can be facilitated as outpt - we discussed home vs staying here - overall we all agreed it made the most sense to stay inpatient at least until bleeding has improved a bit more. Fortunately her iron stores are on the low end of normal, so suspect that she will be able to hematopoiese her way out of anemia as long as the bleeding stops. Upper respiratory symptomsher history is quite compelling for having had the flu, followed by another, discretely different, viral illness this past week. Nothing fitting with bacterial overgrowth or a bacterial infectionno clear role for antibiotics. She agrees. Ongoing vigilance and supportive care. Leukopenianothing appears to be overall ominouswhile she "does have 2 cell lines down"the anemia seems to be much more directly related to her vaginal bleeding, and her platelets being normal is reassuring. Also she does not really show any other concerning signs or symptoms. I suspect it is a viral mediated marrow suppression leukopenia. We discussed this. If so, would anticipate this to improve over time, if it does not normalize over the next 2 weeks or so, or if new symptoms develop, then would definitely want to workup further. WBC slightly better than before. Atrial fibrillationEliquis currently on hold due to vaginal bleeding. Discussed risk/benefit of this, and the small possible increased risk of venous thromboembolic events on progesterone, which is likely independent of her atrial fibrillation overall. At the same time, discussed that basically as soon as her vaginal bleeding has stopped we will be resuming her Eliquis (which is another measure of complexity driving keeping her inpatient at least another day) otherwise as above Subjective Patient doing well today, cold symptoms are slowly going down. Still with vaginal bleeding however states she doesn't have the feeling of blood there that she had before. Review of Systems Review of Systems: As per HPI Physical Exam Constitutional: WD/WN, vitals as above Eyes: PERRL, conjunctivae normal, anicteric sclerae Respiratory: normal respiratory effort, lungs clear to auscultation Cardiovascular: RRR, no murmur, no edema Gastrointestinal (Abdomen): normal bowel sounds, soft, nontender, no hepatosplenomegaly Psychiatric: A+Ox3, euthymic affect Results & Data Results & Data Vital Signs (Past 12 Hours) Vital Signs Temp Pulse Pulse Resp BP Pulse Ox O2 Del Method 03/31/24 03:14 36.7 C 53 L 16 105/59 L 99 Room Air 01/24/24 01:37 57 L 01/23/24 23:21 36.8 C 57 L 16 111/73 99 Room Air 01/23/24 21:12 Room Air 01/23/24 19:41 37.1 C 70 16 101/67 98 Room Air Resident Activity Tracking Resident Involvement: Resident Care Provided Care Provided: Adult Hospital Medicine
[2024-01-24 07:17] LABS: Basophils # (auto) 0.02 K/uL (0.00-0.20); Basophils % (auto) 0.6 %; Eosinophils # (auto) 0.11 K/uL (0.00-0.50); Eosinophils % (auto) 3.3 %; Immature Granulocytes # (auto) 0.01 K/uL (0.01-0.20); Immature Granulocytes % (auto) 0.3 %; Lymphocytes # (auto) 1.48 K/uL (1.20-3.40); Lymphocytes % (auto) 43.8 %; Monocytes # (auto) 0.32 K/uL (0.11-0.59); Monocytes % (auto) 9.5 %; Neutrophils # (auto) 1.44 K/uL (1.40-6.50); Neutrophils % (auto) 42.5 %; RBC Morphology Unremarkable
[2024-01-24] MEDS: POTASSIUM CHLORIDE CRTAB 20 MEQ TABCR PO STA (11:25)
--- NOTE | 2024-01-24 12:57 | Billing Data ---
Date of Service January 24, 2024 Coding Level of Care Code 78034 SUB INP/OBS CARE MIN
[2024-01-25 09:59] LABS: Hematocrit (blood only) 25.9 % (37.0-47.0); Hemoglobin 8.6 g/dl (12.0-16.0); Mean Corpuscular Hemoglobin 28.7 pg (25.0-34.0); Mean Corpuscular Hgb Conc 33.2 g/dL (32.0-36.0); Mean Corpuscular Volume 86.3 fL (80.0-100.0); Mean Platelet Volume 10.1 fL (9.4-12.4); Platelet Count 212 K/uL (130-400); RDW Coefficient of Variation 14.9 % (11.5-14.5); RDW Standard Deviation 46.2 fL (36.4-46.3); White Blood Count 3.77 K/ul (4.8-10.8)
[2024-01-25 10:22] LABS: BUN Creatinine Ratio 9.9 (10-20); Calcium 8.3 mg/dl (8.6-10.3); Creatinine Clr Calc Pharmacy 93.6 ml/min; Est GFR (African American) 116.7 ml/min; Est GFR (Non-African American) 100.7 ml/min; Magnesium 1.9 mg/dl (1.7-2.4); Potassium 3.6 mmol/L (3.5-5.1)
[2024-01-25 10:30] LABS: Basophils # (auto) 0.02 K/uL (0.00-0.20); Basophils % (auto) 0.5 %; Eosinophils # (auto) 0.09 K/uL (0.00-0.50); Eosinophils % (auto) 2.4 %; Immature Granulocytes # (auto) 0.01 K/uL (0.01-0.20); Immature Granulocytes % (auto) 0.3 %; Lymphocytes % (auto) 45.1 %; Monocytes % (auto) 5.3 %; Neutrophils # (auto) 1.75 K/uL (1.40-6.50); Neutrophils % (auto) 46.4 %; Ovalocytes 1+; Polychromasia 1+
--- NOTE | 2024-01-25 14:36 | Electrocardiogram Report ---
Test Reason : Blood Pressure : / mmHG Vent. Rate : 071 BPM Atrial Rate : 071 BPM P-R Int : 156 ms QRS Dur : 118 ms QT Int : 450 ms P-R-T Axes : 052 -51 061 degrees QTc Int : 489 ms Normal sinus rhythm Left anterior fascicular block Left ventricular hypertrophy with QRS widening ( R in aVL , Deyvi product ) Lateral infarct , age undetermined Abnormal ECG No previous ECGs available Confirmed by Marcell Lauren ([id number]) on 01/25/2024 2:36:34 PM Referred By: Esvin Brown Confirmed By:Marcell Lauren
--- NOTE | 2024-01-25 17:07 | Hospitalist Progress Note ---
Date of Service January 25, 2024 Assessment & Plan (1) Abnormal uterine bleeding: Plan: Pt is a 48 yo female with PMH of afib s/p ablation on current eliquis therapy and HTN presenting to the ER by recommendation of her PCP d/t low WBC. AUB/Anemia -per pt, has been perimenopausal with irregular periods for the last 3 yrs; however, usually periods were light (change pads q3-4 hours) -current episode of vaginal bleeding began 12/21 with slight break from Thu to Thursday; she has to change a heavy pads q1-2hrs -pelvic US without evidence for overt cause of bleeding. -Hgb upon admission 9.6 (12.4 last year); pt possible symptomatic- occasionally dizzy, fatigue, etc; however, this may be in part d/t influenza. -Iron low normal at 35, transferrin low normal 206, transferrin sat low 12%, TIBC normal, B12 normal. -Hgb has remained stable, will monitor daily while admitted -Started norethindrone 5mg QID, bleeding has stopped- only minimal pink discharge noted with wiping today -Discussed option of discharge, patient would prefer to restart Eliquis this evening and see how she does overnight before leaving -Pt does have an outpatient ergonomics consultant appt for this upcoming January [address] Rey, will continue norethindrone until this appointment Leukopenia Resolving -Patient with WBC 2.43 and neutrophil 0.81 on outpatient lab 01/21. -Influenza a month ago with persistence for 2 weeks then worsening recently and testing positive for Influenza A on biofire. -Hgb low but in the face of AUB likely cannot say if this is related to the leukopenia. Platelets remain in a normal range. -Medications with rare side effect of leukopenia include amoxicillin and HCTZ however very unlikely these are cause. -More likely viral marrow suppression due to influenza A or another virus not detected by biofire. -Trending upward, neutrophils in normal range now. -Will continue to trend, if continues to trend well then likely benign and patient can follow up outpatient with repeat CBC in 2 weeks. Influenza: -Still somewhat symptomatic with main symptom dry cough. -Patient has remained hemodynamically stable, physical exam reassuring, CXR normal. -May have had re-activation of influenza vs post-viral bacterial infection of pharynx or sinuses. -Continue supportive care for now, Tessalon Perles PRN, throat lozenge PRN. Hx of cardiomyopathy/afib -Pt follows with [facility] cardiology, will need follow up appointment upon discharge -Per pt, she had an ablation done last year and has been on eliquis since d/t afib as well as HCM -her most recent stress echo was performed 10/2023- no results available in chart -echo this admission without abnormalities other than known HCM, EF >70%. -Will resume Eliquis tonight Hypokalemia -K 2.7 in ED; repleted with 40 meq PO and 10 meq IV -AM BMP -hold home HCTZ HTN -Pt with hx of labile BP; underwent secondary HTN work up with endocrinology fall 2022 which appears to have not been completed -d/t electrolyte abnormalities, would recommended d/c HCTZ upon discharge -per record review and pt hx, she was previously on losartan and coreg which were switched by endocrinology in order to evaluate further for primary aldosteronism -pt states her BP have been relatively stable since switching to verapamil and HCTZ Diet: heart healthy Code: full VTE ppx: Will resume Eliquis Dispo: Med/tele, discharge when bleeding stops on norethindrone. (2) Influenza: (3) Paroxysmal A-fib: (4) Perimenopause: (5) Hypertension: (6) Hypokalemia: Admission and Anticipated Discharge Date Admission Date: January 22, 2024 Supervising Physician Co-Signing Physician Notes Attending Physician Supervision Note: I independently interviewed and examined the patient and verified the cannon history and physical, reviewed labs and image studies and agree with findings and care plan noted above. Acute/subacute blood loss anemia d/t abnormal uterine bleeding in setting of anticoagulation with eliquis - -bleeding improved with addition of norethindrone. -h/h stable. -resume eliquis this evening and follow for bleeding. Hypertrophic CMP OILCT2E gene mutation - No LVOTO. -discussed with Dr. Craig - at high risk for stroke d/t CMP. will need to stay on lifelong anticoagulation. -he will ensure outpatient f/u with EP team at [place]. 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 h/o A fib - s/p ablation. no further episodes. Subjective Patient seen and examined at bedside. Patient notes improvement of symptoms, had minimal "pink" discharge with wiping last night and no bleeding overnight. No longer feeling dizzy or lightheaded. Review of Systems Review of Systems: As per above Physical Exam Constitutional: WD/WN, vitals as above Eyes: + anicteric sclerae; no conjunctival abn ormality ENMT: Ears: no external ear abnormality Nose: no external nose abnormality Moist mucous membranes Respiratory: normal respiratory effort, lungs clear to auscultation + cough Cardiovascular: Rate/Rhythm: regular rate and regular rhythm Extremities: no edema Skin: no rashes, warm and dry Neurologic: no focal motor deficits Psychiatric: A+Ox3, euthymic affect Results & Data Results & Data Vital Signs (Past 12 Hours) Vital Signs Temp Pulse Pulse Resp BP BP Pulse Ox 01/25/24 15:44 36.9 C 64 18 117/71 100 01/25/24 15:05 60 01/25/24 11:16 36.8 C 64 18 106/71 100 01/25/24 07:45 01/25/24 07:26 37.0 C 60 18 111/62 98 01/25/24 07:25 47 L O2 Del Method 01/25/24 15:44 Room Air 01/25/24 15:05 01/25/24 11:16 Room Air 01/25/24 07:45 Room Air 01/25/24 07:26 Room Air 01/25/24 07:25 Resident Activity Tracking Resident Involvement: Resident Care Provided Care Provided: Adult Hospital Medicine
[2024-01-25] MEDS: APIXABAN 5 MG TABLET PO SCH (20:41)
[2024-01-26 06:54] LABS: Basophils # (auto) 0.04 K/uL (0.00-0.20); Basophils % (auto) 0.7 %; Eosinophils # (auto) 0.09 K/uL (0.00-0.50); Eosinophils % (auto) 1.5 %; Hematocrit (blood only) 26.2 % (37.0-47.0); Hemoglobin 8.5 g/dl (12.0-16.0); Immature Granulocytes # (auto) 0.02 K/uL (0.01-0.20); Immature Granulocytes % (auto) 0.3 %; Lymphocytes # (auto) 2.23 K/uL (1.20-3.40); Lymphocytes % (auto) 36.7 %; Mean Corpuscular Hemoglobin 28.6 pg (25.0-34.0); Mean Corpuscular Hgb Conc 32.4 g/dL (32.0-36.0); Mean Corpuscular Volume 88.2 fL (80.0-100.0); Mean Platelet Volume 10.1 fL (9.4-12.4); Monocytes # (auto) 0.33 K/uL (0.11-0.59); Monocytes % (auto) 5.4 %; Neutrophils # (auto) 3.37 K/uL (1.40-6.50); Neutrophils % (auto) 55.4 %; Platelet Count 213 K/uL (130-400); RDW Coefficient of Variation 15.2 % (11.5-14.5); RDW Standard Deviation 47.9 fL (36.4-46.3); Red Blood Count 2.97 M/uL (4.20-5.40); White Blood Count 6.08 K/ul (4.8-10.8)
[2024-01-26 07:31] LABS: BUN Creatinine Ratio 13.5 (10-20); Calcium 8.3 mg/dl (8.6-10.3); Creatinine Clr Calc Pharmacy 89.7 ml/min; Est GFR (Non-African American) 95.8 ml/min; Magnesium 1.9 mg/dl (1.7-2.4); Potassium 3.7 mmol/L (3.5-5.1)
--- NOTE | 2024-01-26 11:44 | Discharge Summary ---
Date of Service January 26, 2024 Admission HPI Per Admitting Provider Pt is a 48 yo female with PMH of afib s/p ablation on current eliquis therapy and HTN presenting to the ER by recommendation of her PCP d/t low WBC. Pt states she has been sick for about a month or two now. Her son had the flu originally and her and her became sick as well- this knocked them out for about 2 weeks. Since then, she has been intermittently sick with cough, fatigue, dizziness, and achiness. She called her PCP for further evaluation and they ordered blood work and she was prescribed amoxicillin. An on-call doctor called her and told her to report to the ER d/t low WBC count that should be wor ked up further. In addition to this, pt notes she started vaginally bleeding Dec 21. She has been bleeding every day since (except for maybe 3 days). Her flow has been normal to heavy; she has been changing her pad every 1-2 hrs. She relays she has been perimenopausal for ~3 years. Her last period prior to this bleeding was in Jul 2023. Pt does note she did have a heavy 3 week long period a few years ago in which a pelvic US was performed (this revealed no abnormalities). In the ER, pt was given potassium and magnesium supplementation. Admission Exam Per Admitting Provider Constitutional: NAD, vitals WNL. Eyes: PERRLA. Conjunctivae normal. Respiratory: CTA bilaterally. Non labored breathing. No rhonchi, wheezing, or crackles. Cardiovascular: RRR. No murmurs noted. No LE edema. Skin: No rashes or skin lesions noted. Neurologic: Sensation grossly intact. No FND appreciated. Psychiatric: Speech of normal pace and content. Mood and affect congruent Principal Diagnosis abnormal uterine bleeding, hypokalemia Discharge Exam Constitutional WD/WN, vitals as above Eyes + anicteric sclerae; no conjunctival abnormality ENMT Ears: no external ear abnormality Nose: no external nose abnormality Respiratory normal respiratory effort, lungs clear to auscultation + cough Cardiovascular Rate/Rhythm: regular rate and regular rhythm Extremities: no edema Skin no rashes, warm and dry Neurologic no focal motor deficits Psychiatric A+Ox3, euthymic affect Discharge Data Allergies Allergy/AdvReac Type Severity Reaction Status Date / Time dextromethorphan Allergy Intermediate FACIAL Verified 01/22/24 22:16 [From Vicks NyQuil Cold/Flu ITCHY HIVES Liquicap] doxylamine Allergy Intermediate FACIAL Verified 01/22/24 22:16 [From Vicks NyQuil Cold/Flu ITCHY HIVES Liquicap] mineral oil [From Anusol] Allergy Intermediate MADE Verified 01/22/24 22:16 HEMORRHOIDS WORSE NSAIDS (Non-Steroidal Allergy Unknown CONTRAINDICATED Verified 01/22/24 22:16 Anti-Inflamma D/T HEART ISSUES balsam surjit [From Anusol] AdvReac Intermediate MADE Verified 01/22/24 22:16 HEMORRHOIDS WORSE bismuth subgallate AdvReac Intermediate MADE Verified 01/22/24 22:16 [From Anusol] HEMORRHOIDS WORSE pramoxine [From Anusol] AdvReac Intermediate MADE Verified 01/22/24 22:16 HEMORRHOIDS WORSE resorcinol [From Anusol] AdvReac Intermediate MADE Verified 01/22/24 22:16 HEMORRHOIDS WORSE starch [From Anusol] AdvReac Intermediate MADE Verified 01/22/24 22:16 HEMORRHOIDS WORSE zinc oxide [From Anusol] AdvReac Intermediate MADE Verified 01/22/24 22:16 HEMORRHOIDS WORSE Consultations 01/22/24 23:25 ED Decision to Admit Stat Ordered Studies 01/22/24 19:42 US pelvic complete Stat 01/22/24 19:43 US transvaginal Stat Pelvis Ultrasound 01/22/24 19:42 Exam(s): US PELVIS EXAM: US Pelvis Transabdominal, Complete CLINICAL HISTORY: Reason for exam: heavy vaginal bleeding. TECHNIQUE: Real-time complete transabdominal pelvic ultrasound with image documentation. COMPARISON: No relevant prior studies available. FINDINGS: Uterus/cervix: 9.4 x 5.2 x 5.6 cm. Heterogeneous uterus without a focal fibroid. Normal endometrial stripe thickness at approximately 9 mm. Small amount of fluid within the endometrial canal. Small cervical nabothian cysts. Right ovary: Not well visualized. Probable right ovary 3.1 x 1.3 x 2 cm. Non-shadowing 6 x 5 x 6 mm echogenic focus within the suspected right ovary, possibly a fat-containing lesion. Normal blood flow. Left ovary: 2 x 1.6 x 1.9 cm. No mass. Normal blood flow. Adnexa: No free fluid or adnexal mass. IMPRESSION: Slightly heterogeneous uterus without a focal fibroid. Minimal fluid in the endometrial canal. Small cervical nabothian cyst. Echogenic nonshadowing subcentimeter focus in the probable right ovary, possibly a dermoid or related structure. Otherwise negative examination. Electronically signed by: Castro Gonzalez M.D. 01/22/24 23:09 PM Chest X-Ray 01/22/24 21:50 XR chest 1V portable HISTORY: cough/fatigue COMPARISON: None. FINDINGS: The lungs are clear. Cardiac silhouette is normal in size. No pleural effusions. No pneumothorax. IMPRESSION: No acute process. ACT 112: Negative or not required by law. Electronically signed by: Jude Vidal M.D. 01/23/2024 7:22 AM Hospital Course (1) Abnormal uterine bleeding: Pt is a 48 yo female with PMH of afib s/p ablation on current eliquis therapy and HTN presenting to the ER by recommendation of her PCP d/t low WBC. Abnormal Uterine Bleeding with Acute/subacute blood loss Anemia Per pt, has been perimenopausal with irregular periods for the last 3 yrs; however, usually periods were light (change pads q3-4 hours). Current episode of vaginal bleeding began 12/21 with slight break from Sun to Thursday; she has to change a heavy pads q1-2hrs. Reported occasionally dizzy, fatigue. Hgb upon admission 9.6 (12.4 last year); Iron low normal at 35, transferrin low normal 206, transferrin sat low 12%, TIBC normal, B12 normal. Hgb has remained stable. Pelvic US negative except endometrial thickening of 9mm. Started norethindrone 5mg QID and bleeding has stopped- only minimal pink discharge noted with wiping at time of discharge after resuming Eliquis (has taken 2 doses). Pt does have an outpatient can washer appt for this upcoming January [address] Rey, will continue norethindrone until this appointment. Leukopenia Resolved Likely from recent influenza infection. Influenza: Persistent mild symptoms during hospital stay. Tessalon Perles PRN, throat lozenge PRN. Hx of Hypertrophic cardiomyopathy with [id number] mutation/afib s/p ablation Per pt, she had an ablation done last year. Now on eliquis for HCM. Echo this admission without abnormalities other than known HCM, EF >70%. Resumed Eliquis on p.m. of 01/25/24. Pt follows with [facility] cardiology, outpatient f/u upon discharge. Hypokalemia K 2.7 in ED; repleted. Will resumed HCTZ at reduced dose at time of discharge w ith potassium chloride 10mg BID. Ordered BMP repeat in 2 days. HTN Pt with hx of labile BP; underwent secondary HTN work up with endocrinology fall 2022 which appears to have not been completed. Per record review and pt hx, she was previously on losartan and coreg which were switched by endocrinology in order to evaluate further for primary aldosteronism. Pt states her BP have been relatively stable since switching to verapamil and HCTZ. (2) Influenza: (3) Paroxysmal A-fib: (4) Perimenopause: (5) Hypertension: (6) Hypokalemia: Total Time Total Time Spent Total Time Spent (In Minutes): . 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 We temporarily stopped your Eliquis and managed to stop your uterine bleeding by starting a medication called norethindrone. At the time of discharge, your uterine bleeding had stopped and we were able to resume your blood thinner, Eliquis. Fortunately your symptoms are also improving, but as we discussed it will take time for your body to build up on iron and blood stores after your prolonged bleeding. I have sent a prescription for the norethindrone to your pharmacy, you should take this as prescribed until your upcoming appointment with gynecology (Dr. Rey)- at that time she can discuss with your the plan moving forward for any changes to this medication. -I have ordered blood work for you to complete in two days to recheck your potassium level as well as your hemoglobin level. A discharge summary will be sent to your primary care physician to ensure continuity of care. Follow-up appointments: Make a follow-up appointment with your PCP within the next week. It is very important that you follow up with them shortly after discharge from the [facility]. Keep all your follow-up appointments as already scheduled. If you cannot make an appointment, notify your provider. Medications: Your medication list has been reviewed and reconciled upon discharge to ensure accuracy and continuity of care. An updated list of all your medications is included with your hospital discharge paperwork. Please review this list close ly, and make note of any changes. We sent a new medication called norethindrone to your pharmacy. Take norethindrone 5mg four times daily. You should take this medication as prescribed until your upcoming appointment with Dr. Rey. -We also sent a modified dose of your hydrochlorothiazide to your pharmacy. This is a lower dose as the HCTZ likely caused your potassium levels to decrease. We will also send a prescription for potassium supplementation to your pharmacy for you to take twice daily. We will want to recheck your blood work in two days to ensure your potassium levels are still in a normal range. CALL 911 OR GO TO THE EMERGENCY DEPARTMENT if you experience any of the follow ing: Sudden, severe abdominal pain or nausea/vomiting Severe chest pain, or chest pain that radiates (moves) to your jaw or arm Sudden, severe shortness of breath or difficulty breathing Thank you for allowing us to participate in your care. Pending Studies at Discharge: No Stand-Alone Forms: My [facility], Work/School Release, Smoking Ce ssation Medications and DC Order Prescriptions: New norethindrone acetate 5 mg Tablet 5 mg PO QID 7 Days Qty: 28 0RF potassium chloride 10 mEq tablet extended release 10 meq PO BID 30 Days Qty: 60 0RF hydrochlorothiazide 12.5 mg tablet 12.5 mg PO DAILY 30 Days Qty: 30 0RF Continued atorvastatin [Lipitor] 20 mg tablet 20 mg PO DAILY Qty: 90 2RF Eliquis 5 mg tablet 5 mg PO BID multivitamin Tablet 1 tab PO DAILY benzonatate 200 mg capsule 200 mg PO TID PRN (Reason: cough) Qty: 30 0RF polyethylene glycol 3350 [Miralax] 17 gram Powder In Packet 17 g PO DIRECTED Rx Instructions: TAKES DAILY OR EVERY OTHER DAY ascorbic acid (vitamin C) [Vitamin C] 500 mg Tablet 0 mg PO DAILY PRN (Reason: COLD AND FLU SEASON) Rx Instructions: PT UNSURE OF STRENGTH verapamil 40 mg tablet 80 mg PO TID Discontinued hydrochlorothiazide 25 mg tablet 25 mg PO DAILY Qty: 90 2RF amoxicillin 500 mg tablet 500 mg PO TID 10 Days Qty: 30 0RF Rx Instructions: STARTED 01/22/24 FOR 10 DAYS Discharge Orders: Discharge Order (Routine); Ordered 01/26/24 Ordered By: Malu Navarrete/Other Patient Handouts: Hydrochlorothiazide Oral Tablet, Ethinyl Estradiol/Norethindrone Acetate Oral Tablet 0.035 mg/1 mg Admission Data Admit Date/Time: 01/22/24 23:29 Attending Provider: Marylou Nuñez Admit Provider: Lissette Kidd Primary Care Provider: Dayo Flower Other Providers: Kel Fleming; Mendoza Fowler Other Interventions: Discharge Summary Assessment (RN) Last Done: 01/26/24 11:52 Supervising Physician Co-Signing Physician Notes Attending Physician Supervision Note: I independently interviewed and examined the patient and verified the cannon history and physical, reviewed labs and image studies and agree with findings and care plan noted above.
== END 2024-01-26 12:41 | disposition home or self-care (01) | DRG 760 ==
LOC: ED 19:31 → SUATTDRO 23:29 → EDINP 23:29 → 2N 01-23 08:02